=== PATIENT | female | born 1940 ===

== ENCOUNTER 2024-08-20 06:48 | Day surgery (SDC) | payer OTHER ==
[~2024-08-20 06:48] MED LIST: AVAPRO75 MG PO; DAILY VALUE1 EACH PO; GRALISE600 MG; ORTHO DF 3,7751 EACH; [UNRECOGNIZED DRUG - OTHER]
[2024-08-20] MEDS ORDERED: METRONIDAZOLE/SODIUM CHLORIDE 500 MG/100 ML PIGGYBACK IV ONE (08:56)
[2024-08-20] MEDS ORDERED: CEFTRIAXONE SODIUM 2,000 MG VIAL ONE (08:56)
[2024-08-20] MEDS ORDERED: HEMOSTATIC MATRIX 1 KIT KIT TOP ONE (09:14)
[2024-08-20] MEDS ORDERED: POVIDONE-IODINE 118 ML BOTT TOP ONE (09:17)
[2024-08-20] MEDS ORDERED: DIBUCAINE 30 GM TUBE ONE (09:17)
== END 2024-08-20 14:55 | disposition home or self-care (01) ==
LOC: CIR.AMB 06:48
PROVIDERS: ATTEND Colon & Rectal Surgery
DX: K64.2 Third degree hemorrhoids (principal); K64.4 Residual hemorrhoidal skin tags